=== PATIENT | female | born 1995 | race African-American/Black ===

== ENCOUNTER 2025-04-26 12:07 | Emergency (ER) | payer OTHER ==
[~2025-04-26] VITALS: Ht 167.6 cm; Wt 58.2 kg
[~2025-04-26 12:07] MED LIST: PRENATAL ONE T1 EACH
[2025-04-26 12:15] VITALS: TEMP 98.2
[2025-04-26] MEDS ORDERED: AMOX-457 PO (13:15)
[2025-04-26] MEDS ORDERED: HYDR-4062 PO (13:15)
[2025-04-26] MEDS ORDERED: IBUP-1492 PO (13:15)
[2025-04-26 13:34] VITALS: BP 132/76; PULSE 68; RESP 12; O2SAT 99
[2025-04-26] MEDS: HYDROCODONE/ACETAMINOPHEN 5-325 MG TABLET PO ONE (13:35)
[2025-04-26] MEDS: AMOX TR/POT CLAV 875 MG/125 MG TABLET PO ONE (13:35)
== END 2025-04-26 13:41 | disposition home or self-care (01) ==
LOC: EMS 12:14
DX: K04.7 Periapical abscess without sinus (principal); F12.90 Cannabis use, unspecified, uncomplicated; F17.210 Nicotine dependence, cigarettes, uncomplicated; Z79.899 Other long term (current) drug therapy
CPT/HCPCS: 99283